=== PATIENT | male | born 1975 | race Caucasian/White ===

== ENCOUNTER 2021-05-06 22:47 | Emergency (ER) | payer BC ==
[2021-05-06 23:18] VITALS: BP 161/99; PULSE 81; RESP 20; TEMP 98.1
[2021-05-07] MEDS ORDERED: PROPARACAINE 0.5% OPHTH DROPS 15 ML BTL BOTH EYES STA (00:36)
[2021-05-07] MEDS ORDERED: FLUORESCEIN STRIPS 1 MG STRIP BOTH EYES STA (00:36)
[2021-05-07] MEDS ORDERED: ERYTHROMYCIN 5 MG/GM OPHTH OINT 1 GM TUBE BOTH EYES STA (01:04)
--- NOTE | 2021-05-07 01:06 | ED ---
General Adult HPI - General Chief complaint: Eye Problems Stated complaint: Eye Irritation Time Seen by Provider: 05/07/21 00:54 Source: patient Mode of arrival: ambulatory Limitations: no limitations - History of Present Illness Initial comments: 45-year-old male with a past medical history of diabetes mellitus presents to the emergency room for a chief complaint of bilateral eye burning. Patient states he woke up tonight with bilateral eye drainage and crusting of his eyes closed. States his eyes were burning. States symptoms have improved sign ificantly since he has been in the emergency room. Patient denies any visual changes. Denies fevers or chills. Denies getting any type of foreign material in the eyes.Patient has no other complaints at this time including shortness of breath, chest pain, abdominal pain, nausea or vomiting, headache, or visual changes. - Related Data Previous Rx's Medication Instructions Recorded Erythromycin Ophth Oint [Romycin 1 applic BOTH EYES QID 7 Days #5 gm 05/07/21 Ophth Oint] Allergies Allergy/AdvReac Type Severity Reaction Status Date / Time anesthetics Allergy Unknown Uncoded 05/06/21 23:15 Review of Systems ROS Statement: Those systems with pertinent positive or pertinent negative responses have been documented in the HPI. ROS Other: All systems not noted in ROS Statement are negative. Past Medical History Past Medical History: Diabetes Mellitus History of Any Multi-Drug Resistant Organisms: None Reported Past Surgical History: Hernia Repair Past Psychological History: No Psychological Hx Reported Smoking Status: Former smoker Past Alcohol Use History: Occasional Past Drug Use History: None Reported General Exam Limitations: no limitations General appearance: alert, in no apparent distress Head exam: Present: atraumatic Eye exam: Present: PERRL, EOMI, conjunctival injection (Minimal conjunctival injection bilaterally), other (Minimal drainage noted on the eyelashes). Absent: scleral icterus ENT exam: Present: normal exam, mucous membranes moist Neck exam: Present: normal inspection, full ROM. Absent: tenderness Respiratory exam: Present: normal lung sounds bilaterally. Absent: respiratory distress, wheezes Cardiovascular Exam: Present: regular rate, normal rhythm, normal heart sounds Course Vital Signs 05/06/21 23:15 Temperature 98.1 F Pulse Rate 81 Respiratory 20 Rate Blood Pressure 161/99 O2 Sat by Pulse 97 Oximetry Medical Decision Making - Medical Decision Making Patient feels much better at this time. Patient likely has a conjunctivitis as symptoms are bilateral in nature. Patient can be discharged home to follow up with primary care. Will return here for any worsening symptoms. Disposition Clinical Impression: Acute conjunctivitis Disposition: HOME SELF-CARE Condition: Good Instructions (If sedation given, give patient instructions): Conjunctivitis (ED) Additional Instructions: Please apply antibiotic ointment every 6 hours for 5-7 days. Follow-up with your doctor. Return to the emergency room for any worsening symptoms. Prescriptions: Erythromycin Ophth Oint [Romycin Ophth Oint] 1 applic BOTH EYES QID 7 Days #5 gm Is patient prescribed a controlled substance at d/c from ED?: No Referrals: Nonstaff,Physician [Primary Care Provider] - 1-2 days Time of Disposition: 01:05
== END 2021-05-07 01:51 | disposition home or self-care (01) ==
LOC: EC 22:47
DX: H10.33 Unspecified acute conjunctivitis, bilateral (principal); E11.9 Type 2 diabetes mellitus without complications; Z87.891 Personal history of nicotine dependence
CPT/HCPCS: 99283